=== PATIENT | female | born 1995 | race African-American/Black ===

== ENCOUNTER 2018-12-27 20:40 | Observation (INO) | payer MEDICAID, OTHER ==
[~2018-12-27] VITALS: Ht 162.6 cm; Wt 87.1 kg
== END 2018-12-27 23:05 | disposition home or self-care (01) ==
LOC: 8 EST LDRP 20:40
PROVIDERS: ADMIT Obstetrics & Gynecology; ATTEND Obstetrics & Gynecology
DX: O26.893 Other specified pregnancy related conditions, third trimester (principal); R10.30 Lower abdominal pain, unspecified; R10.2 Pelvic and perineal pain; M54.5 Low back pain; Z3A.40 40 weeks gestation of pregnancy
CPT/HCPCS: 59025; 76815; 76818; 99281; G0378

== ENCOUNTER 2018-12-31 06:03 | Inpatient (IN) | payer OTHER ==
[~2018-12-31] VITALS: Ht 167.6 cm; Wt 87.1 kg
[2018-12-31] MEDS ORDERED: PNV1TABL50 MT (06:46)
[2018-12-31] MEDS ORDERED: CARBOPROST TROMETHAMINE 250 MCG/ML AMPUL IM PRN (10:15)
[2018-12-31] MEDS ORDERED: LIDOCAINE HCL 1% 20ML VIAL (Pyxis) INJ INFIL SCH (10:15)
[2018-12-31] MEDS ORDERED: METHYLERGONOVINE MALEATE 0.2 MG/ML IM PRN (10:15)
[2018-12-31] MEDS ORDERED: DINOPROSTONE 10MG VAGINAL INSERT VG ONE (10:15)
[2018-12-31] MEDS ORDERED: BUTORPHANOL TARTRATE 2 MG/ML VIAL IV PRN ×2 (10:15→23:00)
[2018-12-31] MEDS ORDERED: NALOXONE HCL 0.4 MG/ML 1ML VIAL IM PRN (10:15)
[2018-12-31] MEDS: LACTATED RINGERS 1,000 ML IV SCH ×2 (10:32→14:19)
[2018-12-31 10:33] LABS: CLARITY URINE CLEAR (CLEAR); COLOR URINE YELLOW (YELLOW); KETONES URINE NEGATIVE (NEGATIVE); LEUKOCYTE ESTERASE URINE 2+ (NEGATIVE); NITRITE URINE NEGATIVE (NEGATIVE); OCCULT BLOOD URINE 2+ (NEGATIVE); PH URINE 6.5 (4.5-8.0); PROTEIN URINE NEGATIVE (NEGATIVE); SPECIFIC GRAVITY URINE 1.013 (1.005-1.030); UROBILINOGEN URINE 0.2 E.U./dL (0.2-1.0)
[2018-12-31 10:55] LABS: BASOPHILS % 0.6 % (0.0-2.0); EOSINOPHILS % 0.6 % (0.0-5.0); HEMATOCRIT. 34.3 % (36.0-48.0); HEMOGLOBIN. 10.9 g/dL (12.0-16.0); LYMPHOCYTES % 16.6 % (20.0-50.0); MEAN CORPUSCULAR HEMOGLOBIN 26.3 pg (28.0-32.0); MEAN CORPUSCULAR VOLUME 82.7 fL (81.0-99.0); MEAN PLATELET VOLUME 10.2 fl (7.4-10.4); MONOCYTES % 8.8 % (2.0-8.0); NEUTROPHILS % 73.4 % (40.0-76.0); PLATELET 173 x1000/uL (130-400); RED BLOOD CELL COUNT 4.14 mill/uL (4.2-5.4); RED CELL DISTRIBUTION WIDTH 14.8 % (11.6-14.6)
[2018-12-31 11:07] LABS: PARTIAL THROMBOPLASTIN TIME 28.9 sec (23.4-31.0); PROTHROMBIN TIME 9.9 sec (9.1-11.1)
[2018-12-31 11:13] LABS: CANNABINOID URINE SCREEN NEGATIVE (NEGATIVE); METHADONE URINE SCREEN NEGATIVE (NEGATIVE); OPIATES URINE SCREEN NEGATIVE (NEGATIVE); PHENCYCLIDINE URINE SCREEN NEGATIVE (NEGATIVE)
[2018-12-31 11:14] LABS: *AMPHETAMINES SCREEN URINE NEGATIVE (NEGATIVE); *BARBITURATES SCREEN URINE NEGATIVE (NEGATIVE); *BENZODIAZEPINES SCREEN URINE NEGATIVE (NEGATIVE); *COCAINE SCREEN URINE NEGATIVE (NEGATIVE)
[2018-12-31] MEDS ORDERED: ROPIVACAINE HCL/PF EPIDURAL 200 ML EP SCH (11:15)
[2018-12-31 13:11] LABS: HEPATITIS B SURFACE ANTIGEN NEGATIVE
[2018-12-31] MEDS ORDERED: CITRIC ACID/SODIUM CITRATE SOLN 30ML UDC PO NR (15:00)
[2018-12-31 15:52] LABS: BG BASE EXCESS -12.6 mmol/L (-2.0-2.0); BG FRACTION INSPIRED OXYGEN 21; BG HCO3 ACT 19.9 mmol/L (22.0-26.0); BG PCO2 78.3 mmHg (35.0-45.0); BG PH 7.022 (7.350-7.450); BG PO2 < 30.3 mmHg (75.0-100.0); BG SAMPLE SITE CORD; BG VENT MODE ROOM AIR
[2018-12-31 15:53] LABS: BG BASE EXCESS -12.4 mmol/L (-2.0-2.0); BG FRACTION INSPIRED OXYGEN 21; BG HCO3 ACT 18.1 mmol/L (22.0-26.0); BG PCO2 60.6 mmHg (35.0-45.0); BG PH 7.093 (7.350-7.450); BG PO2 < 30.3 mmHg (75.0-100.0); BG SAMPLE SITE CORD; BG VENT MODE ROOM AIR
[2018-12-31] MEDS: DEXT 5%/LR + PITOCIN 20UNITS/L 1,000 ML IV SCH (16:06)
[2018-12-31] MEDS ORDERED: BISACODYL 10MG SUPP PR PRN (17:15)
[2018-12-31] MEDS ORDERED: DIPHENHYDRAMINE 25MG CAPSULE PO PRN (17:15)
[2018-12-31] MEDS ORDERED: RHO(D) IMMUNE GLOBULIN 300 MCG/SYR IM PRN (17:15)
[2018-12-31] MEDS ORDERED: HYDROCODONE/ACETAMINOPHEN 5/325MG TABLET PO PRN (17:15)
[2018-12-31] MEDS ORDERED: ONDANSETRON HCL 4MG/2ML INJ IV PRN (17:15)
[2018-12-31] MEDS ORDERED: IBUPROFEN 400MG TABLET PO PRN (17:15)
[2018-12-31] MEDS ORDERED: LANOLIN OINT 0.25 GM TUBE TOP PRN (17:15)
[2018-12-31] MEDS ORDERED: DEXT 5%/LR + PITOCIN 20UNITS/L 1,000 ML IV SCH (17:30)
[2018-12-31] MEDS ORDERED: DOCUSATE SODIUM 100MG CAPSULE PO SCH (21:00)
[2018-12-31 22:15] VITALS: BP 127/84
[2018-12-31 22:45] VITALS: BP 130/85
[2018-12-31] MEDS ORDERED: NALOXONE HCL 0.4 MG/ML 1ML VIAL IV PRN (23:00)
[2018-12-31] MEDS ORDERED: BUTORPHANOL TARTRATE 2 MG/ML VIAL IM PRN (23:00)
[2018-12-31] MEDS ORDERED: DIPHENHYDRAMINE 50MG/ML VIAL IV PRN (23:00)
[2018-12-31] MEDS ORDERED: KETOROLAC 30MG/ML VIAL IV PRN (23:00)
[2019-01-01 03:00] VITALS: BP 120/84
[2019-01-01] MEDS: DEXT 5%/LR + PITOCIN 20UNITS/L 1,000 ML IV SCH (04:56)
[2019-01-01 06:12] LABS: BASOPHILS % 0.3 % (0.0-2.0); EOSINOPHILS % 0.7 % (0.0-5.0); HEMOGLOBIN. 9.7 g/dL (12.0-16.0); LYMPHOCYTES % 15.3 % (20.0-50.0); MEAN CORPUSCULAR HEMOGLOBIN 26.7 pg (28.0-32.0); MEAN CORPUSCULAR VOLUME 82.4 fL (81.0-99.0); MEAN PLATELET VOLUME 10.3 fl (7.4-10.4); MONOCYTES % 9.2 % (2.0-8.0); NEUTROPHILS % 74.5 % (40.0-76.0); PLATELET 153 x1000/uL (130-400); RED BLOOD CELL COUNT 3.64 mill/uL (4.2-5.4); RED CELL DISTRIBUTION WIDTH 14.8 % (11.6-14.6)
[2019-01-01] MEDS: FERROUS SULFATE 325MG TABLET PO SCH ×4 (07:30→21:36)
[2019-01-01 08:00] VITALS: BP 125/90
[2019-01-01] MEDS: SIMETHICONE 80MG TABLET CHEW PO SCH ×4 (08:00→21:36)
[2019-01-01] MEDS: PRENATAL VIT/FE FUMARATE/FA TABLET PO SCH (09:00)
[2019-01-01 16:10] VITALS: BP 133/91
[2019-01-01 20:00] VITALS: BP 123/74
[2019-01-01] MEDS: IBUPROFEN 800MG TABLET PO PRN (21:44)
[2019-01-02 00:01] VITALS: BP 120/54
[2019-01-02 05:30] VITALS: BP 126/92
[2019-01-02] MEDS: SIMETHICONE 80MG TABLET CHEW PO SCH ×2 (08:00→13:00)
[2019-01-02 08:20] VITALS: BP 134/94
[2019-01-02] MEDS: PRENATAL VIT/FE FUMARATE/FA TABLET PO SCH (09:00)
[2019-01-02 09:40] VITALS: BP 126/92
[2019-01-02] MEDS: IBUPROFEN 800MG TABLET PO PRN (09:40)
[2019-01-02] MEDS: FERROUS SULFATE 325MG TABLET PO SCH ×2 (12:30→15:27)
== END 2019-01-02 17:10 | disposition home or self-care (01) | DRG 540 ==
LOC: 8 EST LDRP 06:03 → UNDOADMOB 06:03 → OBSVTOIN 06:06 → 8 EST LDRP 06:06 → 8EST 22:01
PROVIDERS: ADMIT Obstetrics & Gynecology; ATTEND Obstetrics & Gynecology
PROC: 10D00Z1 Extraction of Products of Conception, Low, Open Approach (ICD-10-PCS; principal; 2018-12-31)
DX: O76 Abnormality in fetal heart rate and rhythm complicating labor and delivery (principal); D64.9 Anemia, unspecified; Z37.0 Single live birth; Z3A.40 40 weeks gestation of pregnancy; O99.02 Anemia complicating childbirth
CPT/HCPCS: 36415; 36600; 76815; 76818; 80305; 82805; 86592; 86703; 86762; 86850; 86900; 86920; 87340; 88307; 99281; G0378; J1200; J2590; J2795; J7120; A4315

== ENCOUNTER 2021-03-20 13:12 | Emergency (ER) | payer OTHER ==
[~2021-03-20] VITALS: Ht 165.1 cm; Wt 75.0 kg
[2021-03-20] MEDS ORDERED: KETOROLAC 60MG/2ML VIAL IM ONE (15:00)
[2021-03-20] MEDS ORDERED: METHOCARBAMOL 500MG TABLET PO ONE (15:00)
[2021-03-20] MEDS ORDERED: LIDOCAINE 5% PATCH TOP SCH (15:15)
[2021-03-20 15:56] VITALS: BP 130/88
[2021-03-20] MEDS ORDERED: METH-773 MT (16:34)
[2021-03-20] MEDS ORDERED: NAPR-681 MT (16:34)
== END 2021-03-20 17:51 | disposition home or self-care (01) ==
LOC: ER 13:12
DX: S39.012A Strain of muscle, fascia and tendon of lower back, initial encounter (principal); V43.52XA Car driver injured in collision with other type car in traffic accident, initial encounter; Y93.89 Activity, other specified; Y92.488 Other paved roadways as the place of occurrence of the external cause
CPT/HCPCS: 72100; 81025; 96372; 99283; J1885; Z7610